=== PATIENT | female | born 1990 | race Caucasian/White ===

== ENCOUNTER 2018-02-09 10:19 | Emergency (ER) | payer OTHER ==
--- NOTE | 2018-02-09 10:25 | PDOC ---
Attending Attestation - Resident Resident Name: Santosh Suh - ED Attending Attestation I have performed the following: I have examined & evaluated the patient, The case was reviewed & discussed with the resident, I agree w/resident's findings & plan, Exceptions are as noted - HPI HPI: 02/09/18 11:07 27yo female with a closed head injury on . States she was wrestling with her family when she hit the R side of her head on the countertop. States she was drinking alcohol. Pt is unsure whether there was LOC, but states she cannot remember the rest of the events of the day and night. Pt states since the head injury she has had headaches, episodes of blurred vision, and nausea. Pt denies vomiting. no neck pain. No back pain. No paresthesias or weakness. Pt ambulates with a steady gait. - Physicial Exam PE: 02/09/18 11:08 Gen: aaox3, nad Heent: PERRL, EOMI, no septal hematoma, no hemotypanium neck: supple, no stepoffs or deformities heart: +s1s2 reg lungs: cta b/l abd: soft, nt/nd +bs ext: no c/c/e neuro: cn ii-xii grossly intact, no focal deficits, muscle strength 5/5 UE and LE, sensation intact skin: no signs of ecchymosis or hematoma to the head, no rashes, no ecchymosis to extremities - Medical Decision Making 02/09/18 10:25 I, Dr. Jackelin Gilmore, DO, attest that this document has been prepared under my direction and personally reviewed by me in its entirety. I further attest, that it accurately reflects all work, treatment, procedures and medical decision -making performed by me. 02/09/18 11:05 a/p: 27yo female with a closed head injury on day - now with concussive symptoms -pt with etoh use on and then hit her head, unknown LOC, but has memory loss after the event -mitchell since, blurred vision last night, nausea today -will obtain head ct -will give tylenol and reglan for pain -neuro intact, no external signs of trauma, suspect concussive syndrome -discussed brain rest and concussion symptoms/management -pt is nontoxic in appearance, ambulates with a steady gait 02/09/18 12:[address] negative stable for dc to home with concussive syndrome and neuro follow up
--- NOTE | 2018-02-09 10:31 | PDOC ---
History of Present Illness <Jackelin Gilmore - Last Filed: 02/09/18 12:17> - General History Source: Patient - History of Present Illness Initial Comments: 02/09/18 11:07 27f with nbo pmh presents to the ed after hitting her head against a marble top counter 2 nights ago while wrestling her brother. Headache was worse last night. She remembers hitting her right yarsani. Did not lose consciousness. Since then she's been feeling increasing clumsy with discomfort/pain at the back of her head Says she's been dropping objects way more than usual. No change in vision, denies sleepiness, fever, chills , chest pain, shortness of breath. <Santosh Suh - Last Filed: 02/09/18 12:23> - General Chief Complaint: Injury Stated Complaint: HIT HEAD ON COUNTER Time Seen by Provider: 02/09/18 10:22 Past History <Jackelin Gilmore - Last Filed: 02/09/18 12:17> - Suicide/Smoking/Psychosocial Hx Smoking History: Former smoker Number of Cigarettes Smoked Daily: 10 Hx Alcohol Use: (OCC) Substance Use Type: None <Santosh Suh - Last Filed: 02/09/18 12:23> - Past Medical History Allergies/Adverse Reactions: Allergies Allergy/AdvReac Type Severity Reaction Status Date / Time No Known Allergies Allergy Verified 02/09/18 10:21 Home Medications: Ambulatory Orders Ibuprofen [Advil -] 400 mg PO PRN PRN 02/09/18 Metoclopramide HCl [Reglan] 10 mg PO TID PRN #9 tablet 02/09/18 Review of Systems - Review of Systems Able to Perform ROS?: Yes Is the patient limited Korean proficient: No Constitutional: No: Symptoms Reported HEENTM: Yes: See HPI Respiratory: No: Symptoms reported Cardiac (ROS): No: Symptoms Reported ABD/GI: No: Symptoms Reported : No: Symptoms Reported Musculoskeletal: No: Symptoms Reported Integumentary: No: Symptoms Reported Neurological: Yes: See HPI All Other Systems: Reviewed and Negative <Santosh Suh - Last Filed: 02/09/18 12:23> *Physical Exam - Vital Signs Last Vital Signs Temp Pulse Resp BP Pulse Ox 97.8 F 75 20 116/84 100 02/09/18 10:20 02/09/18 10:20 02/09/18 10:20 02/09/18 10:20 02/09/18 10:20 <Jackelin Gilmore - Last Filed: 02/09/18 12:17> - Physical Exam General Appearance: Yes: Nourished, Appropriately Dressed. No: Apparent Distress HEENT: positive: EOMI, MOI, Normal ENT Inspection Respiratory/Chest: positive: Lungs Clear, Normal Breath Sounds. negative: Chest Tender, Respiratory Distress Cardiovascular: positive: Regular Rhythm, Regular Rate, S1, S2 Gastrointestinal/Abdominal: positive: Normal Bowel Sounds, Flat, Soft. negative : Tender Musculoskeletal: positive: Normal Inspection. negative: CVA Tenderness Extremity: positive: Normal Capillary Refill, Normal Inspection, Normal Range of Motion Integumentary: positive: Normal Color, Dry, Warm Neurologic: positive: Fully Oriented, Alert, Normal Mood/Affect, Normal Response , Motor Strength 5/5 <Santosh Suh - Last Filed: 02/09/18 12:23> Moderate Sedation - Procedure Monitoring Vital Signs: Procedure Monitoring Vital Signs Temperature 97.8 F 02/09/18 10:20 Pulse Rate 75 02/09/18 10:20 Respiratory Rate 20 02/09/18 10:20 Blood Pressure 116/84 02/09/18 10:20 O2 Sat by Pulse Oximetry (%) 100 02/09/18 10:20 <Jackelin Gilmore - Last Filed: 02/09/18 12:17> ED Treatment Course - ADDITIONAL ORDERS Additional order review: Laboratory Results 02/09/18 10:30 Urine HCG, Qual Negative - Medications Given in the ED: ED Medications Discontinued Medications Generic Name Dose Route Start Last Admin Trade Name Freq PRN Reason Stop Dose Admin Acetaminophen 650 mg 02/09/18 10:48 02/09/18 11:05 Tylenol - PO 02/09/18 10:49 650 mg ONCE ONE Administration Metoclopramide HCl 10 mg 02/09/18 10:47 02/09/18 11:05 Reglan - PO 02/09/18 10:48 10 mg ONCE ONE Administration <Jackelin Gilmore - Last Filed: 02/09/18 12:17> Medical Decision Making - Medical Decision Making 02/09/18 11:23 27f with headache after hitting her head. [place] though patient's neuro exam was normal, will obtain head CT, and treat discomfort medically with zofran and toradol <Santosh Suh - Last Filed: 02/09/18 12:23> *DC/Admit/Observation/Transfer - Discharge Dispostion Decision to Admit order: No <Jackelin Gilmore - Last Filed: 02/09/18 12:17> - Discharge Dispostion Decision to Admit order: No <Santosh Suh - Last Filed: 02/09/18 12:23> Diagnosis at time of Disposition: Closed head injury, Concussion - Discharge Dispostion Disposition: HOME - Prescriptions Prescriptions: Metoclopramide HCl [Reglan] 10 mg PO TID PRN #9 tablet PRN Reason: Nausea - Referrals Referrals: Radha Krause MD [Staff Physician] - - Patient Instructions Printed Discharge Instructions: DI for Closed Head Injury Additional Instructions: Follow up with Dr. Krause for your headache. Come back to the emergency department for any new, worsening or concerning symptom.
[2018-02-09 10:39] VITALS: BP 116/84; PULSE 75; TEMP 97.8; BMI 28.1
[2018-02-09] MEDS ORDERED: METOCLOPRAMIDE HCL 10 MG TABLET (FP) PO ONE ×2 (10:47→11:03)
[2018-02-09] MEDS ORDERED: ACETAMINOPHEN 325 MG TABLET (FP) PO ONE (10:48)
[2018-02-09] MEDS ORDERED: ACETAMINOPHEN 325 MG TABLET (FP) ONE (11:03)
== END 2018-02-09 12:30 | disposition home or self-care (01) ==
LOC: FER 10:19
DX: S06.0X9A Concussion with loss of consciousness of unspecified duration, initial encounter (principal); W22.03XA Walked into furniture, initial encounter; Y93.89 Activity, other specified; Y92.89 Other specified places as the place of occurrence of the external cause; Z87.891 Personal history of nicotine dependence
CPT/HCPCS: 70450-TC; 84703; 99282-25

== ENCOUNTER 2022-03-14 04:18 | Day surgery (SDC) | payer OTHER ==
[2022-02-23 14:13] VITALS: BMI 29.7
[~2022-03-14 04:18] MED LIST: BACITRACIN ZINC 15 GM TUBE TOPICAL OINTMENT TP ONE; BUPIVACAINE HCL/PF 0.5% (5MG/ML) 10 ML VIAL IJ ONE; LIDOCAINE HCL 1%, 10 MG/ML (20ML VIAL) NR ONE
[2022-03-14] MEDS ORDERED: LIDOCAINE HCL 1%, 10 MG/ML (20ML VIAL) ONE (13:15)
[2022-03-14] MEDS ORDERED: BUPIVACAINE HCL/PF 0.5% (5MG/ML) 10 ML VIAL ONE (13:15)
[2022-03-14] MEDS ORDERED: MIDAZOLAM HCL 2 MG/2 ML SINGLE DOSE VIAL ONE ×2 (13:18→13:47)
[2022-03-14] MEDS ORDERED: PROPOFOL 20 ML ONE (13:47)
[2022-03-14] MEDS ORDERED: ceFAZolin SODIUM 1 GM VIAL IVPB ONE (13:54)
[2022-03-14] MEDS ORDERED: LIDOCAINE HCL 1%, 10 MG/ML (20ML VIAL) NR ONE (14:00)
[2022-03-14] MEDS ORDERED: BUPIVACAINE HCL/PF 0.5% (5MG/ML) 10 ML VIAL IJ ONE (14:00)
[2022-03-14] MEDS ORDERED: BACITRACIN ZINC 15 GM TUBE TOPICAL OINTMENT TP ONE (14:20)
[2022-03-14 15:02] VITALS: RESP 18
[2022-03-14 15:25] VITALS: BP 112/73; PULSE 71; TEMP 97.3
== END 2022-03-14 15:10 | disposition home or self-care (01) ==
LOC: JASU-SURG 04:18
PROVIDERS: ATTEND Surgery
PROC: 0HB6XZZ Excision of Back Skin, External Approach (ICD-10-PCS; principal; 2022-03-14 14:00)
DX: L72.3 Sebaceous cyst (principal)
CPT/HCPCS: 88304-TC